=== PATIENT | female | born 1930 | race Hispanic/Latino ===

== ENCOUNTER → 2019-01-20 | Outpatient (CLI) | payer OTHER, MEDICARE ==
[~2019-01-20] MED LIST: ALEN70TA10 PO; APIX2.5T PO; CETI10TA86 PO; CHOL500050 PO; DONE10TA43 PO; HYDR25TA PO; LEVO100T12 PO; METO25TA6 PO; MULT-492 PO; OXYB5TAB10 PO; PRAV40TA3 PO; VALS160T29 PO
== END | disposition home or self-care (01) ==
LOC: SHCH 13:16
PROVIDERS: ATTEND Internal Medicine Cardiovascular Disease
DX: I08.0 Rheumatic disorders of both mitral and aortic valves (principal); I11.9 Hypertensive heart disease without heart failure; I48.2 Chronic atrial fibrillation; Z95.0 Presence of cardiac pacemaker
CPT/HCPCS: 93306

== ENCOUNTER → 2019-06-06 | Outpatient (CLI) | payer OTHER, MEDICARE ==
[~2019-06-06] MED LIST changes: +AMLO5TAB9 PO; +AMOX-429 PO; +DIGO125T71 PO; +HYDR12.54 PO; +LEVO100 PO; +LOSA50TA64 PO; +METO-391 PO; +METO-409 PO; +MULT-507 PO; -OXYB5TAB10 PO; +OXYB5TAB15 PO; +RIVA15TA PO
== END | disposition home or self-care (01) ==
LOC: RAH 07:39
PROVIDERS: ATTEND Internal Medicine
DX: R93.2 Abnormal findings on diagnostic imaging of liver and biliary tract (principal); R10.9 Unspecified abdominal pain
CPT/HCPCS: 76700

== ENCOUNTER → 2019-08-04 | Outpatient (CLI) | payer OTHER, MEDICARE ==
[~2019-08-04] MED LIST changes: +ACET650S14 RC; -ALEN70TA10 PO; +ALEN70TA69 PO; +AMLO-257 PEG; -AMLO5TAB9 PO; -AMOX-429 PO; -APIX2.5T PO; +BISA10SU11 RC; +CATAPRESS TD; -CETI10TA86 PO; -CHOL500050 PO; +DIGO125T71 PEG; -DIGO125T71 PO; -HYDR25TA PO; +IBUP-2784 PEG; +INSU100V12 SQ; +IOHEXOL-350 50ML VIAL IV ONE; +LACT10SO9 PEG; +LEVO100 PEG; -LEVO100 PO; -LEVO100T12 PO; -METO25TA6 PO; +METR500T PO; -MULT-492 PO; +NYST5ORA7 PO; +ONDA-104 PEG; +PANT40SU PEG; +QUET25TA PEG; +RIVA15TA PEG; -RIVA15TA PO; -VALS160T29 PO
== END | disposition home or self-care (01) ==
LOC: RAH 10:18
PROVIDERS: ATTEND Internal Medicine Infectious Disease
DX: K63.2 Fistula of intestine (principal); F41.9 Anxiety disorder, unspecified; Z79.899 Other long term (current) drug therapy
CPT/HCPCS: 49424; 76080; Q9967

== ENCOUNTER → 2019-08-16 | Outpatient (CLI) | payer OTHER, MEDICARE ==
[~2019-08-16] MED LIST changes: -ACET650S14 RC; +ALEN70TA10 PO; -ALEN70TA69 PO; -AMLO-257 PEG; +AMLO5TAB9 PO; -BISA10SU11 RC; -CATAPRESS TD; -DIGO125T71 PEG; +DIGO125T71 PO; -IBUP-2784 PEG; -INSU100V12 SQ; -IOHEXOL-350 50ML VIAL IV ONE; -LACT10SO9 PEG; -LEVO100 PEG; +LEVO100 PO; -NYST5ORA7 PO; -ONDA-104 PEG; -PANT40SU PEG; -QUET25TA PEG; -RIVA15TA PEG; +RIVA15TA PO
== END | disposition home or self-care (01) ==
LOC: RAH 08:58
PROVIDERS: ATTEND Internal Medicine Infectious Disease
DX: K21.9 Gastro-esophageal reflux disease without esophagitis (principal); L98.8 Other specified disorders of the skin and subcutaneous tissue
CPT/HCPCS: 74240

== ENCOUNTER 2019-09-13 14:49 | Inpatient (IN) | payer OTHER, MEDICARE ==
[~2019-09-13] VITALS: Ht 152.4 cm; Wt 52.0 kg
[~2019-09-13 14:49] MED LIST changes: -ALEN70TA10 PO; +ALEN70TA69 PO; +AMLO-257 PEG; -AMLO5TAB9 PO; +DIGO125T71 PEG; -DIGO125T71 PO; +LEVO100 PEG; -LEVO100 PO; +RIVA15TA PEG; -RIVA15TA PO
[2019-09-13 15:52] LABS: BASOPHILS % (AUTO) 0.2 % (0.0-5.0); EOSINOPHILS % (AUTO) 2.6 % (0.0-8.0); HEMATOCRIT 33.7 % (36-48); LYMPHOCYTES % (AUTO) 27.9 % (21.0-51.0); MEAN CORPUSCULAR HEMOGLOBIN 26.4 pg (27.0-33.0); MEAN CORPUSCULAR HGB CONC 31.5 g/dL (32.0-36.0); MEAN CORPUSCULAR VOLUME 83.8 fL (79-99); MONOCYTES % (AUTO) 7.9 % (3.0-13.0); NEUTROPHILS % (AUTO) 60.9 % (40.0-77.0); PLATELET COUNT (AUTO) 515 K/uL (130-400); RED BLOOD CELL COUNT(AUTO) 4.02 MIL/uL (4.00-5.50); RED CELL DISTRIBUTION WIDTH 16.9 % (11.0-15.5); WHITE BLOOD COUNT (AUTO) 8.8 K/uL (4.8-10.8)
[2019-09-13 16:12] LABS: INR 1.19 (0.85-1.15); PARTIAL THROMBOPLASTIN TIME 33.7 SEC (26.3-35.5); PROTHROMBIN TIME 12.8 SEC (9.6-11.6)
[2019-09-13 16:37] LABS: POTASSIUM 3.9 mmol/L (3.5-5.1)
[2019-09-13 16:42] LABS: ALBUMIN 2.9 g/dL (3.5-5.0); BILIRUBIN,TOTAL 0.2 mg/dL (0.2-1.0); CRP QUANTITATIVE 3.9 mg/L (0.00-9.0)
[2019-09-13] MEDS ORDERED: DIATR MEGLU/DIATRIZOATE SODIUM 30 ML BOTTLE ONE (16:45)
[2019-09-13] MEDS ORDERED: IOHEXOL-350 75 ML VIAL IV ONE (16:45)
[2019-09-13 16:57] LABS: ERYTHROCYTE SEDIMENTATION RATE 39 MM/HR (0-30)
[2019-09-13] MEDS: SODIUM CHLORIDE 0.9% 1000ML 1,000 ML IV SCH (21:15)
[2019-09-13] MEDS ORDERED: ONDANSETRON HCL 4 MG/2 ML VIAL IVP PRN ×2 (21:15)
[2019-09-13] MEDS ORDERED: ACETAMINOPHEN 650 MG SUPPOSITORY RC PRN (21:15)
[2019-09-13] MEDS ORDERED: GLUCAGON 1MG KIT 1 MG ML IM PRN (21:15)
[2019-09-13 23:50] VITALS: BP 166/61
[2019-09-13] MEDS: INSULIN R NPO SS1/2 SQ SCH (23:58)
[2019-09-14] MEDS ORDERED: QUET25TA PEG (00:59)
[2019-09-14] MEDS ORDERED: ONDA-104 PEG (00:59)
[2019-09-14] MEDS ORDERED: PANT40SU PEG (00:59)
[2019-09-14] MEDS ORDERED: ACET650S14 RC (00:59)
[2019-09-14] MEDS ORDERED: INSU100V12 SQ (00:59)
[2019-09-14] MEDS ORDERED: NYST5ORA7 PO (00:59)
[2019-09-14] MEDS ORDERED: CATAPRESS TD (00:59)
[2019-09-14] MEDS ORDERED: BISA10SU11 RC (00:59)
[2019-09-14] MEDS ORDERED: LACT10SO9 PEG (00:59)
[2019-09-14] MEDS ORDERED: IBUP-2784 PEG (00:59)
[2019-09-14] MEDS ORDERED: IBUPROFEN 100 MG/5 ML SUSP UDCUP PEG PRN (01:15)
[2019-09-14] MEDS ORDERED: ACETAMINOPHEN 650 MG SUPPOSITORY RC PRN (01:15)
[2019-09-14] MEDS ORDERED: ONDANSETRON 4 MG TABLET PEG PRN (01:15)
[2019-09-14] MEDS ORDERED: BISACODYL 10 MG SUPP.RECT RC PRN (01:15)
[2019-09-14] MEDS ORDERED: LACTULOSE 20 GM/30 ML UDCUP PEG PRN (01:15)
[2019-09-14 04:04] VITALS: BP 160/60
[2019-09-14 04:30] LABS: MEAN CORPUSCULAR HEMOGLOBIN 25.8 pg (27.0-33.0); MEAN CORPUSCULAR HGB CONC 30.6 g/dL (32.0-36.0); MEAN CORPUSCULAR VOLUME 84.5 fL (79-99); PLATELET COUNT (AUTO) 448 K/uL (130-400); RED BLOOD CELL COUNT(AUTO) 4.14 MIL/uL (4.00-5.50); RED CELL DISTRIBUTION WIDTH 16.8 % (11.0-15.5); WHITE BLOOD COUNT (AUTO) 9.7 K/uL (4.8-10.8)
[2019-09-14 04:55] LABS: CREATININE 0.8 mg/dL (0.5-1.5); MAGNESIUM 1.6 mg/dL (1.80-2.40); POTASSIUM 3.7 mmol/L (3.5-5.1)
[2019-09-14] MEDS: INSULIN R NPO SS1/2 SQ SCH ×4 (06:00→23:59)
[2019-09-14 07:19] LABS: APPEARANCE,URINE CLEAR (CLEAR); BILIRUBIN,URINE NEGATIVE (NEGATIVE); COLOR,URINE YELLOW (YELLOW); GLUCOSE, URINE (UA) NEGATIVE (NEGATIVE); KETONES,URINE NEGATIVE (NEGATIVE); LEUKOCYTE ESTERASE ,URINE SMALL (NEGATIVE); NITRATE,URINE NEGATIVE (NEGATIVE); OCCULT BLOOD,URINE NEGATIVE (NEGATIVE); PH,URINE 7.5 (5.0-8.0); PROTEIN,URINE 30 mg/dL (NEGATIVE); UROBILINOGEN,URINE 0.2 mg/dL (0.2-1.0)
[2019-09-14] MEDS: SODIUM CHLORIDE 0.9% 1000ML 1,000 ML IV SCH ×2 (07:23→17:28)
[2019-09-14] MEDS: LEVOTHYROXINE 100 MCG TABLET PO SCH (07:30)
[2019-09-14 07:57] VITALS: BP 125/78
[2019-09-14 07:58] LABS: RBC,URINE 0-1 /HPF (0-1); WBC,URINE 26-50 /HPF (0-1)
[2019-09-14 07:59] LABS: BACTERIA,URINE Moderate /HPF (None Seen); SQUAMOUS EPITHELIAL CELL,UR Rare /HPF (0-2)
[2019-09-14] MEDS: DIGOXIN 125 MCG TABLET PO SCH (08:24)
[2019-09-14] MEDS: AMLODIPINE BESYLATE 5 MG TAB PO SCH (08:25)
[2019-09-14] MEDS ORDERED: NYSTATIN 100000 UNIT/ML 5ML UDCUP PO SCH (09:00)
[2019-09-14] MEDS ORDERED: FAMOTIDINE/PF 20 MG/2 ML VIAL IV SCH (09:00)
[2019-09-14 11:11] VITALS: BP 159/81
[2019-09-14] MEDS: PANTOPRAZOLE SODIUM 40 MG TABLET.DR PO SCH ×2 (13:00→21:00)
[2019-09-14] MEDS ORDERED: VANCOMYCIN PROTOCOL PER PHARMACY IV SCH (15:00)
--- NOTE | 2019-09-14 15:04 | NUR ---
RD NOTIFICATION Pt admitted with abdominal pain, dementia. Observation status. Pt NPO. Pt with agitation, per RN. Pt monitored labs: BG 133, Ca 8.1, Mg 1.60, Alb 2.9. LBM 09/13/19. RD to continue to monitor for updated POC. Please notify as nutritional concerns arise. Thank you. Addendum: 09/14/19 at [address] Amended: Links added.
--- NOTE | 2019-09-14 15:53 | NUR ---
[facility] consult Patient assessed as requested. Recommendations submitted and report given to patient's nurse. Addendum: 09/14/19 at 1555 by CARIDAD MUELLER LVN Amended: Links added.
--- NOTE | 2019-09-14 16:05 | NUR ---
DCP CM called DEBBIE Tovar discussed dc plans. Pt was assist with ADL's, currently short term at [facility] for rehab. Prior to lives at home with son. Pt has a provider(sina Randolph is pt's provider) 20hrs/wk, walker, bedside commode. Denies any other equipments/services. Son able to assist with transportation and needs as necessary. DC plan back to [facility] to continue rehab once pt stable, telephone consent REYNA signed. CM to cont to follow up. Addendum: 09/14/19 at 1607 by ELVIRA CROFT LVN CM Amended: Links added.
[2019-09-14 16:18] VITALS: BP 157/70
[2019-09-14] MEDS ORDERED: VANCOMYCIN 1GM+NS 250ML 250 ML IV ONE (16:30)
[2019-09-14] MEDS ORDERED: HONEY 1 APPL/ML TUBE TP SCH (17:00)
[2019-09-14] MEDS: RIVAROXABAN 10 MG TABLET PEG SCH (17:28)
[2019-09-14 20:16] VITALS: BP 130/74
[2019-09-14] MEDS ORDERED: INSULIN GLARGINE 100 UNITS/ML 10 ML VIAL SQ SCH (21:00)
[2019-09-14] MEDS: ZOSYN 3.375GM+NS 50ML 50 ML IV SCH (21:08)
[2019-09-14 23:11] VITALS: BP 149/85
[2019-09-15 03:33] VITALS: BP 134/61
[2019-09-15] MEDS: VANCOMYCIN 500MG+NS 100ML 100 ML IV SCH ×2 (03:36→17:35)
[2019-09-15] MEDS: ZOSYN 3.375GM+NS 50ML 50 ML IV SCH ×3 (03:36→18:27)
[2019-09-15] MEDS: SODIUM CHLORIDE 0.9% 1000ML 1,000 ML IV SCH ×2 (03:38→20:51)
[2019-09-15 05:36] LABS: BASOPHILS % (AUTO) 0.4 % (0.0-5.0); EOSINOPHILS % (AUTO) 1.5 % (0.0-8.0); HEMATOCRIT 31.8 % (36-48); LYMPHOCYTES % (AUTO) 15.3 % (21.0-51.0); MEAN CORPUSCULAR HEMOGLOBIN 25.2 pg (27.0-33.0); MEAN CORPUSCULAR HGB CONC 30.2 g/dL (32.0-36.0); MEAN CORPUSCULAR VOLUME 83.5 fL (79-99); MONOCYTES % (AUTO) 8.2 % (3.0-13.0); NEUTROPHILS % (AUTO) 74.2 % (40.0-77.0); PLATELET COUNT (AUTO) 425 K/uL (130-400); RED BLOOD CELL COUNT(AUTO) 3.81 MIL/uL (4.00-5.50); RED CELL DISTRIBUTION WIDTH 16.9 % (11.0-15.5); WHITE BLOOD COUNT (AUTO) 8.2 K/uL (4.8-10.8)
[2019-09-15 05:53] LABS: ALBUMIN 2.6 g/dL (3.5-5.0); BILIRUBIN,TOTAL 0.5 mg/dL (0.2-1.0); MAGNESIUM 1.6 mg/dL (1.80-2.40); POTASSIUM 3.4 mmol/L (3.5-5.1)
[2019-09-15] MEDS: INSULIN R NPO SS1/2 SQ SCH ×3 (06:00→18:00)
[2019-09-15 08:00] VITALS: BP 124/61
[2019-09-15] MEDS: PANTOPRAZOLE SODIUM 40 MG TABLET.DR PO SCH ×2 (08:59→20:50)
[2019-09-15] MEDS: LEVOTHYROXINE 100 MCG TABLET PO SCH (08:59)
[2019-09-15] MEDS: AMLODIPINE BESYLATE 5 MG TAB PO SCH (08:59)
[2019-09-15] MEDS: DIGOXIN 125 MCG TABLET PO SCH (08:59)
[2019-09-15 12:00] VITALS: BP 161/85
--- NOTE | 2019-09-15 14:15 | NUR ---
CM Note: Dusty pending reacceptance CM spoke to Eunice Zee, received H&P, cliniclals, covid post acute assessment. Per Eunice pt does not need new PASRR at this time. Pt pending reacceptance at this time. EMS arranged and faxed for today, primary nurse to call [facility] once pt ready to DC. Primary nurse aware. CM to cont to follow up.
--- NOTE | 2019-09-15 15:24 | NUR ---
1501 as per Ann Castaneda patient is confused. I faxed IM letter to [id number] with note;patient is confused. I placed IM Letter in chart under consent tab.
[2019-09-15 16:00] VITALS: BP 135/77
[2019-09-15] MEDS: RIVAROXABAN 10 MG TABLET PEG SCH (17:35)
[2019-09-15] MEDS: QUETIAPINE FUMARATE 25 MG TAB PEG PRN (20:50)
[2019-09-15] MEDS: LACTATED RINGERS 1000ML 1,000 ML IV SCH (20:54)
[2019-09-15 21:42] VITALS: BP 145/72
[2019-09-16] MEDS: ZOSYN 3.375GM+NS 50ML 50 ML IV SCH ×3 (02:38→17:35)
[2019-09-16] MEDS: LACTATED RINGERS 1000ML 1,000 ML IV SCH ×2 (02:39→17:30)
[2019-09-16 04:37] VITALS: BP 144/71
[2019-09-16 04:42] LABS: CREATININE 1.1 mg/dL (0.5-1.5); MAGNESIUM 1.5 mg/dL (1.80-2.40)
[2019-09-16] MEDS: INSULIN R NPO SS1/2 SQ SCH ×4 (06:00→17:35)
[2019-09-16] MEDS: LEVOTHYROXINE 100 MCG TABLET PO SCH (06:08)
[2019-09-16] MEDS: VANCOMYCIN 500MG+NS 100ML 100 ML IV SCH (06:08)
[2019-09-16 08:00] VITALS: BP 115/64
[2019-09-16] MEDS: PANTOPRAZOLE SODIUM 40 MG TABLET.DR PO SCH ×2 (09:00→20:48)
[2019-09-16] MEDS: SODIUM CHLORIDE 0.9% 1000ML 1,000 ML IV SCH ×3 (09:15→20:16)
--- NOTE | 2019-09-16 11:04 | NUR ---
DR MATHIAS MADE ROUNDS ON PATIENT .PER DR MATHIAS REGARDING PENDING POSSIBLE FISTULOGRAM WILL SPEAK WITH DR INTERIANO FIRST AND DECIDE IF TO PROCEED WITH TEST BUT FOR NOW ALLOWING ICE CHIPS AND SIPS OF WATER .
[2019-09-16] MEDS: POTASSIUM CHLORIDE 20MEQ/100ML 100 ML IV PRN ×2 (11:30→14:24)
[2019-09-16] MEDS: LIDOCAINE HCL-MPF 1% 2ML VIAL IV PRN ×2 (11:30→14:24)
[2019-09-16] MEDS: MAGNESIUM 2GM PREMIX 50ML 50 ML IV PRN (11:32)
[2019-09-16 12:00] VITALS: BP 138/68
[2019-09-16 16:00] VITALS: BP 147/69
[2019-09-16] MEDS: AMLODIPINE BESYLATE 5 MG TAB PO SCH (17:30)
[2019-09-16] MEDS: RIVAROXABAN 10 MG TABLET PEG SCH (17:30)
[2019-09-16] MEDS: DIGOXIN 125 MCG TABLET PO SCH (17:30)
[2019-09-16 19:50] VITALS: BP 123/80
[2019-09-16] MEDS: QUETIAPINE FUMARATE 25 MG TAB PEG PRN (22:53)
[2019-09-16 23:39] VITALS: BP 133/58
[2019-09-17] MEDS: ZOSYN 3.375GM+NS 50ML 50 ML IV SCH ×3 (02:04→17:05)
[2019-09-17 04:01] VITALS: BP 131/63
[2019-09-17] MEDS: SODIUM CHLORIDE 0.9% 1000ML 1,000 ML IV SCH ×2 (05:15→15:28)
[2019-09-17] MEDS: INSULIN R NPO SS1/2 SQ SCH ×4 (05:37→17:03)
[2019-09-17 05:38] LABS: MAGNESIUM 1.8 mg/dL (1.80-2.40); POTASSIUM 3.1 mmol/L (3.5-5.1)
[2019-09-17] MEDS: LEVOTHYROXINE 100 MCG TABLET PO SCH (07:45)
[2019-09-17] MEDS: LACTATED RINGERS 1000ML 1,000 ML IV SCH ×2 (07:52→19:35)
[2019-09-17 08:00] VITALS: BP 140/63
[2019-09-17] MEDS: PANTOPRAZOLE SODIUM 40 MG TABLET.DR PO SCH ×2 (09:47→21:00)
[2019-09-17] MEDS: DIGOXIN 125 MCG TABLET PO SCH (09:48)
[2019-09-17] MEDS: AMLODIPINE BESYLATE 5 MG TAB PO SCH (09:48)
[2019-09-17 12:00] VITALS: BP 132/58
[2019-09-17 16:00] VITALS: BP 143/69
[2019-09-17] MEDS: RIVAROXABAN 10 MG TABLET PEG SCH (17:05)
[2019-09-17 20:04] VITALS: BP 157/71
[2019-09-17] MEDS: QUETIAPINE FUMARATE 25 MG TAB PEG PRN (21:32)
[2019-09-18] VITALS (7 sets, daily range): BP systolic 136–176; BP diastolic 57–81
[2019-09-18] MEDS: DEXTROSE 50%-WATER 50 ML DISP.SYRIN IV PRN (01:31)
[2019-09-18] MEDS: ZOSYN 3.375GM+NS 50ML 50 ML IV SCH ×3 (03:24→18:50)
[2019-09-18] MEDS: INSULIN R NPO SS1/2 SQ SCH ×4 (06:00→18:00)
[2019-09-18 06:13] LABS: INR 1.26 (0.85-1.15); PROTHROMBIN TIME 13.5 SEC (9.6-11.6)
[2019-09-18] MEDS: LEVOTHYROXINE 100 MCG TABLET PO SCH (06:35)
[2019-09-18] MEDS: LACTATED RINGERS 1000ML 1,000 ML IV SCH ×2 (06:35→22:15)
[2019-09-18] MEDS: PANTOPRAZOLE SODIUM 40 MG TABLET.DR PO SCH ×2 (09:00→20:47)
[2019-09-18] MEDS: AMLODIPINE BESYLATE 5 MG TAB PO SCH (09:14)
[2019-09-18] MEDS: DIGOXIN 125 MCG TABLET PO SCH (09:14)
[2019-09-18] MEDS ORDERED: IOHEXOL-350 50ML VIAL IV ONE (10:48)
--- NOTE | 2019-09-18 12:22 | NUR ---
CM NOTE/[facility] FAXED PER ALVINO, BIPIN ORDER TO RETURN TO SNF. FAXED ORDER TO [facility] FAX, CONFIRMED RECEIVED VIA FAX.
--- NOTE | 2019-09-18 14:33 | NUR ---
RD FOLLOW UP Pt NPO pending Fistulogram per RN. Depending results, Pt diet to be advanced vs Altered means nutrition/TPN. Recommend to advance diet as tolerated to 75gm, Heart Healthy as medically feasible. Pt NPO X 5 days. Malnutrition risk. Pt admitted with abdominal pain. Pt has fistula. RD to continue to monitor. Please notify as additional nutrition concerns arise. Thank you. Addendum: 09/18/19 at [address] Amended: Links added.
[2019-09-18] MEDS: RIVAROXABAN 10 MG TABLET PEG SCH (16:19)
[2019-09-18] MEDS: INSULIN HUMULIN R 100 UNIT/ML 3ML SQ SCH (21:00)
[2019-09-19] MEDS: LACTATED RINGERS 1000ML 1,000 ML IV SCH ×3 (02:15→20:40)
[2019-09-19] MEDS: ZOSYN 3.375GM+NS 50ML 50 ML IV SCH ×4 (02:16→18:00)
[2019-09-19 03:57] VITALS: BP 140/66
[2019-09-19 05:30] LABS: BASOPHILS % (AUTO) 0.4 % (0.0-5.0); EOSINOPHILS % (AUTO) 3.8 % (0.0-8.0); HEMATOCRIT 34.7 % (36-48); LYMPHOCYTES % (AUTO) 23.4 % (21.0-51.0); MEAN CORPUSCULAR HEMOGLOBIN 25.4 pg (27.0-33.0); MEAN CORPUSCULAR HGB CONC 31.4 g/dL (32.0-36.0); MEAN CORPUSCULAR VOLUME 80.9 fL (79-99); PLATELET COUNT (AUTO) 368 K/uL (130-400); RED BLOOD CELL COUNT(AUTO) 4.29 MIL/uL (4.00-5.50); RED CELL DISTRIBUTION WIDTH 16.5 % (11.0-15.5); WHITE BLOOD COUNT (AUTO) 5.6 K/uL (4.8-10.8)
[2019-09-19] MEDS: INSULIN HUMULIN R 100 UNIT/ML 3ML SQ SCH ×4 (05:30→20:40)
[2019-09-19 05:53] LABS: CREATININE 0.8 mg/dL (0.5-1.5); MAGNESIUM 1.3 mg/dL (1.80-2.40)
[2019-09-19 05:56] LABS: POTASSIUM 2.9 mmol/L (3.5-5.1)
[2019-09-19] MEDS: MAGNESIUM 2GM PREMIX 50ML 50 ML IV PRN (06:13)
[2019-09-19] MEDS: LEVOTHYROXINE 100 MCG TABLET PO SCH (06:30)
--- NOTE | 2019-09-19 07:30 | NUR ---
PATIENT BECOMING INCREASINGLY RESTLESS, STATES SHE DOES NOT WANT TO BE AN "INVALID," NEEDS TO STAY ACTIVE AND WANTS TO GO HOME. ACCIDENTALLY DISLODGED IV SHE GOT OUT OF BED TO SIT ON CHAIR UNASSISTED. IV SITE RED/SWOLLEN/INFILTRATED, IV SITE REMOVED. ENCOURAGED TO STAY IN BED OR SIT ON CHAIR HER HEART RATE INCREASES TO 130'S-150'S, BUT BECOMES EASILY UPSET SHE STATES SHE DOES NOT WANT TO BE IN BED ANYMORE. REPORT GIVEN TO DAY SHIFT NURSE.
[2019-09-19 07:57] VITALS: BP 138/89
[2019-09-19] MEDS: PANTOPRAZOLE SODIUM 40 MG TABLET.DR PO SCH ×2 (09:22→20:40)
[2019-09-19] MEDS: AMLODIPINE BESYLATE 5 MG TAB PO SCH (09:22)
[2019-09-19] MEDS: DIGOXIN 125 MCG TABLET PO SCH (09:22)
--- NOTE | 2019-09-19 10:01 | NUR ---
Patient refusing IV placement to continue with IV medications and intravenous fluid replacement as ordered. Explained necessity of medications to improve wellness and treat infections. Patient states she does not want IV placed or to be connected to IV fluids/medications and that she can take oral antibiotics. Explained refusal of treatment form and that it is patient's right to refuse treatment and requested patient's signature, however patient states she will wait to talk to physicians before signing refusal of treatment form.
[2019-09-19] MEDS ORDERED: POTASSIUM CHLORIDE 10% ELIXIR 20 MEQ/15 ML UDCUP ONE (10:09)
[2019-09-19] MEDS ORDERED: LIDOCAINE HCL-MPF 1% 2ML VIAL IV PRN (10:15)
[2019-09-19] MEDS ORDERED: POTASSIUM CHLORIDE 20MEQ/100ML 100 ML IV PRN (10:15)
[2019-09-19 11:58] VITALS: BP 124/66
[2019-09-19] MEDS: POTASSIUM CHLORIDE 10% ELIXIR 20 MEQ/15 ML UDCUP PO PRN ×3 (13:51→17:23)
--- NOTE | 2019-09-19 14:50 | NUR ---
RD FOLLOW UP Diet advanced to Clear Liquid. Pt with refusal of POC, severe dementia, as per EMR. Recommend Ensure Clear TID, with meals Recommend Advance diet as tolerated to Heart healthy, 75gm CCD, as medically feasible RD to continue to monitor. Please notify as nutritional concerns arise. Addendum: 09/19/19 at [address] Amended: Links added.
[2019-09-19] MEDS: RIVAROXABAN 10 MG TABLET PEG SCH (16:13)
[2019-09-19 16:45] VITALS: BP 133/54
[2019-09-19 20:00] VITALS: BP 159/58
[2019-09-20] VITALS (7 sets, daily range): BP systolic 137–161; BP diastolic 52–76
[2019-09-20] MEDS: ZOSYN 3.375GM+NS 50ML 50 ML IV SCH ×3 (00:25→17:11)
[2019-09-20 05:08] LABS: HEMATOCRIT 34.2 % (36-48); MEAN CORPUSCULAR HEMOGLOBIN 25.4 pg (27.0-33.0); MEAN CORPUSCULAR HGB CONC 31.6 g/dL (32.0-36.0); MEAN CORPUSCULAR VOLUME 80.5 fL (79-99); RED BLOOD CELL COUNT(AUTO) 4.25 MIL/uL (4.00-5.50); RED CELL DISTRIBUTION WIDTH 16.8 % (11.0-15.5); WHITE BLOOD COUNT (AUTO) 4.7 K/uL (4.8-10.8)
[2019-09-20 05:25] LABS: CREATININE 0.9 mg/dL (0.5-1.5); MAGNESIUM 1.9 mg/dL (1.80-2.40)
[2019-09-20 05:55] LABS: POTASSIUM 2.9 mmol/L (3.5-5.1)
[2019-09-20] MEDS: LIDOCAINE HCL-MPF 1% 2ML VIAL IV PRN ×2 (06:07→13:44)
[2019-09-20] MEDS: POTASSIUM CHLORIDE 20 MEQ ERTAB PO PRN ×4 (06:07→16:23)
[2019-09-20] MEDS: POTASSIUM CHLORIDE 20MEQ/100ML 100 ML IV PRN ×2 (06:07→13:44)
[2019-09-20] MEDS: INSULIN HUMULIN R 100 UNIT/ML 3ML SQ SCH ×4 (06:32→20:29)
[2019-09-20] MEDS: LEVOTHYROXINE 100 MCG TABLET PO SCH (06:36)
[2019-09-20] MEDS: PANTOPRAZOLE SODIUM 40 MG TABLET.DR PO SCH ×2 (08:31→20:10)
[2019-09-20] MEDS: DIGOXIN 125 MCG TABLET PO SCH (08:32)
[2019-09-20] MEDS: AMLODIPINE BESYLATE 5 MG TAB PO SCH (08:32)
[2019-09-20] MEDS: LACTATED RINGERS 1000ML 1,000 ML IV SCH ×2 (13:44→20:10)
[2019-09-20] MEDS: CLONIDINE 0.1 MG/ 24 HR PATCH TD SCH (16:23)
[2019-09-20] MEDS: RIVAROXABAN 10 MG TABLET PEG SCH (16:23)
--- NOTE | 2019-09-20 17:00 | NUR ---
informed reina,hat finishing materials preparer regarding pending clearance from surgery and infection dis ,and pending call back . per hat finishing materials preparer leave discharge order active and transfer once cleared by specialists .
--- NOTE | 2019-09-20 17:29 | NUR ---
CM NOTE/[facility] APPROVED PER ALVINO, PATIENT APPROVED TO RETURN WHEN MEDICALLY CLEARED. TREMAINE VAUGHAN, PRIMARY NURSE, MADE AWARE.
[2019-09-21] MEDS: ZOSYN 3.375GM+NS 50ML 50 ML IV SCH ×3 (01:29→17:59)
[2019-09-21 03:38] VITALS: BP 138/65
[2019-09-21 04:59] LABS: INR 1.21 (0.85-1.15); PARTIAL THROMBOPLASTIN TIME 31.3 SEC (26.3-35.5)
[2019-09-21] MEDS: LEVOTHYROXINE 100 MCG TABLET PO SCH (05:31)
[2019-09-21] MEDS: INSULIN HUMULIN R 100 UNIT/ML 3ML SQ SCH ×4 (05:39→20:08)
[2019-09-21 09:01] VITALS: BP 172/59
[2019-09-21] MEDS: AMLODIPINE BESYLATE 5 MG TAB PO SCH (09:48)
[2019-09-21] MEDS: HONEY 1 APPL/ML TUBE TP SCH (09:48)
[2019-09-21] MEDS: DIGOXIN 125 MCG TABLET PO SCH (09:48)
[2019-09-21] MEDS: PANTOPRAZOLE SODIUM 40 MG TABLET.DR PO SCH ×2 (09:48→20:05)
--- NOTE | 2019-09-21 11:03 | NUR ---
RD UPDATE RD Notification for TPN received. Recommend initiate at low to moderate infusion rate of 50mls/hr. 60gm protein, 180gm Dxt, 852kcal. Recommendations placed in Pt chart. RD to monitor for rate advancement upon tolerance. please notify as additional concerns arise. Thank you.
--- NOTE | 2019-09-21 12:00 | NUR ---
[facility] TONYA CAME BY TO SEE PATIENT AND INFORMED SHE WILL HAVE TO SEND FOR INSURANCE AUTHORIZATION AGAIN DUE TO CHANGE FOR PICC LINE AND TPN NEW ORDERS . SHE ALSO COLLECTED FOR COVID TEST THRU HER FACILITY PROTOCOL WITH OWN SUPPLY .
[2019-09-21 12:32] VITALS: BP 147/62
--- NOTE | 2019-09-21 13:56 | NUR ---
DC PLAN VISITED WITH PATIENT SEVERAL TIMES. PATIENT SEEMS A LITTLE CONFUSED. SPOKE TO DAUGHTER. PATIENT GETTING PICC LINE. SPOKE TO SONYA SAID WILL NEED FOR AT LEAST 3 WEEKS. INFO SENT [facility]. STILL PENDING PICC AND TPN ORDER. Addendum: 09/21/19 at 1401 by RALF FLORES RN CM Amended: Links added.
[2019-09-21] MEDS: CLONIDINE 0.1 MG/ 24 HR PATCH TD SCH (14:00)
--- NOTE | 2019-09-21 14:00 | NUR ---
SONYA CROFT MADE ROUNDS, PATIENT TO HAVE TPN STARTED AND CONT AT [facility] WITH TPN ,MAY HAVE CLEAR LIQUID DIET WELL.. PER SONYA ONCE PATIENT GOES TO [facility] WILL CONT WITH TPN FOR 2 WEEKS AND WILL NEED TO SCHEDULE A REPEAT FISTULOGRAM IN 2 WEEKS POST DISCHARGE FROM HOSPITAL .
--- NOTE | 2019-09-21 16:41 | NUR ---
PATIENT PENDING CYNDI, PER HOUSE SUP TO GIVE AFTER PICC LINE PLACEMENT NOT BEFORE .. PICC LINE NURSE WILL COME BY TO PLACE PICC PENDING THIS AFTERNOON
[2019-09-21] MEDS: RIVAROXABAN 10 MG TABLET PEG SCH (16:54)
[2019-09-21] MEDS: LACTATED RINGERS 1000ML 1,000 ML IV SCH ×2 (16:55→20:13)
--- NOTE | 2019-09-21 17:00 | NUR ---
PER PICC LINE NURSE NO NEED TO HOLD XARELTO OK TO GIVE ALREADY
[2019-09-21 17:17] VITALS: BP 154/62
[2019-09-21] MEDS ORDERED: M.V.I. IV [ADULT] 10 ML in CLINIMIX E 5%-15% 2,000 ML IV SCH (17:45)
--- NOTE | 2019-09-21 18:35 | NUR ---
STATUS POST PICC LINE PLACEMENT ,PER PICC LINE NURSE PATIENT HAS SOME BLOOD COLLECTION UNDER DRESSING AND TO MONITOR FOR PATIENT NOT TO GET UP ON HER OWN AND TO RELAX HER ARM . PENDING PICC LINE PLACEMENT VERIFICATION PER CXR AND MD ORDER TO USE . WILL CONTINUE TO MONITOR
[2019-09-21 20:23] VITALS: BP 165/66
[2019-09-21 23:57] VITALS: BP 162/61
[2019-09-22] MEDS: ZOSYN 3.375GM+NS 50ML 50 ML IV SCH ×3 (01:09→16:49)
[2019-09-22 04:05] VITALS: BP 160/64
--- NOTE | 2019-09-22 05:36 | NUR ---
abdominal wounds cleaned, pictures taken and placed on chart
[2019-09-22] MEDS: LEVOTHYROXINE 100 MCG TABLET PO SCH (05:41)
[2019-09-22] MEDS: INSULIN HUMULIN R 100 UNIT/ML 3ML SQ SCH ×4 (05:51→21:00)
[2019-09-22 08:00] VITALS: BP 162/54
[2019-09-22] MEDS: AMLODIPINE BESYLATE 5 MG TAB PO SCH (09:07)
[2019-09-22] MEDS: PANTOPRAZOLE SODIUM 40 MG TABLET.DR PO SCH ×2 (09:07→22:18)
[2019-09-22] MEDS: DIGOXIN 125 MCG TABLET PO SCH (09:08)
[2019-09-22] MEDS: HONEY 1 APPL/ML TUBE TP SCH (09:09)
[2019-09-22 11:50] VITALS: BP 142/70
[2019-09-22] MEDS: CLONIDINE 0.1 MG/ 24 HR PATCH TD SCH (14:00)
--- NOTE | 2019-09-22 14:45 | NUR ---
RD UPDATE TPN initiated 09/21/19 20:06. Noted elevated BG levels, 205 this AM at time of screen. Recommend continue TPN at current rate at this time. RD to follow up for advancement on Wednesday. Please notify as nutrition concerns arise.
--- NOTE | 2019-09-22 15:04 | NUR ---
DC PLAN SPOKE TO SON AND DAUGHTER. THEY HAD QUESTIONS REGARDING [facility] SINCE INSURANCE CONTACTED THEM REGARDING PLACEMENT. ASKED IF THEY WANTED TO CHANGE FROM [facility] TO [facility]. ONCE I EXPLAINED THAT THEY COULD NOT HAVE BOTH THEY HAD TO CHOOSE AND THAT [facility] NORMALLY DOES NOT DO [employer] PLACEMENT. MOM ALREADY [employer] AT [facility] THEY MIGHT WANT TO MAKE SURE [facility] IS ACCEPTING [facility]. SAID OKAY STICK WITH [facility]. INFO UPDATES SENT TO [facility]. PENDING COST BENEFIT OF LIPIDS. Addendum: 09/22/19 at 1514 by RALF FLORES RN CM Amended: Links added.
[2019-09-22 16:00] VITALS: BP 155/75
--- NOTE | 2019-09-22 16:22 | NUR ---
RD UPDATE Only .15/10 Clinimix E availability. Recommend rate of 60mls/hr (61gm protein, 490 kcal) Pt with Clear Liquid diet order in place. Recommend Ensure Clear BID. Please notify RD as additional nutrition concerns arise.
[2019-09-22] MEDS ORDERED: M.V.I. IV [ADULT] 10 ML in CLINIMIX E 5%-15% 2,000 ML IV SCH (16:45)
[2019-09-22] MEDS: RIVAROXABAN 10 MG TABLET PEG SCH (16:46)
[2019-09-22] MEDS ORDERED: CLINIMIX E 4.25%-5% SOLUTION 2,000 ML IV SCH (18:00)
[2019-09-22] MEDS: LACTATED RINGERS 1000ML 1,000 ML IV SCH (19:35)
[2019-09-22 19:59] VITALS: BP 154/74
[2019-09-22 23:32] VITALS: BP 154/74
[2019-09-23] MEDS: ZOSYN 3.375GM+NS 50ML 50 ML IV SCH ×3 (01:20→17:14)
[2019-09-23 04:45] VITALS: BP 142/62
[2019-09-23] MEDS: LEVOTHYROXINE 100 MCG TABLET PO SCH (06:29)
[2019-09-23] MEDS: INSULIN HUMULIN R 100 UNIT/ML 3ML SQ SCH ×4 (06:30→21:01)
[2019-09-23] MEDS: HONEY 1 APPL/ML TUBE TP SCH (07:54)
[2019-09-23 08:00] VITALS: BP 116/68
[2019-09-23] MEDS: LACTATED RINGERS 1000ML 1,000 ML IV SCH ×2 (08:55→21:03)
[2019-09-23] MEDS: PANTOPRAZOLE SODIUM 40 MG TABLET.DR PO SCH ×2 (09:25→20:56)
[2019-09-23] MEDS: AMLODIPINE BESYLATE 5 MG TAB PO SCH (09:25)
[2019-09-23] MEDS: DIGOXIN 125 MCG TABLET PO SCH (09:25)
[2019-09-23 11:49] VITALS: BP 166/82
[2019-09-23 13:02] LABS: POTASSIUM 3.6 mmol/L (3.5-5.1)
[2019-09-23] MEDS: CLONIDINE 0.1 MG/ 24 HR PATCH TD SCH (14:00)
[2019-09-23 16:00] VITALS: BP 114/60
[2019-09-23] MEDS ORDERED: CLINIMIX E 4.25%-5% SOLUTION 2,000 ML IV SCH (16:00)
[2019-09-23] MEDS: RIVAROXABAN 10 MG TABLET PEG SCH (17:14)
[2019-09-23 19:00] VITALS: BP 112/52
[2019-09-23 23:00] VITALS: BP 148/59
[2019-09-24] MEDS: ZOSYN 3.375GM+NS 50ML 50 ML IV SCH ×2 (00:55→08:42)
[2019-09-24 03:00] VITALS: BP 147/67
[2019-09-24 05:37] LABS: BASOPHILS % (AUTO) 0.2 % (0.0-5.0); EOSINOPHILS % (AUTO) 1.8 % (0.0-8.0); HEMATOCRIT 33.1 % (36-48); LYMPHOCYTES % (AUTO) 26.9 % (21.0-51.0); MEAN CORPUSCULAR HEMOGLOBIN 25.1 pg (27.0-33.0); MEAN CORPUSCULAR HGB CONC 31.4 g/dL (32.0-36.0); MONOCYTES % (AUTO) 17.9 % (3.0-13.0); NEUTROPHILS % (AUTO) 52.8 % (40.0-77.0); PLATELET COUNT (AUTO) 286 K/uL (130-400); RED BLOOD CELL COUNT(AUTO) 4.14 MIL/uL (4.00-5.50); RED CELL DISTRIBUTION WIDTH 16.6 % (11.0-15.5); WHITE BLOOD COUNT (AUTO) 5.5 K/uL (4.8-10.8)
[2019-09-24 05:50] LABS: ALBUMIN 2.5 g/dL (3.5-5.0); BILIRUBIN,DIRECT 0.2 mg/dL (0.0-0.3); BILIRUBIN,TOTAL 0.6 mg/dL (0.2-1.0); MAGNESIUM 1.6 mg/dL (1.80-2.40); PHOSPHORUS 3.8 mg/dL (2.5-4.9); POTASSIUM 3.5 mmol/L (3.5-5.1); TOTAL PROTEIN, SERUM 5.8 g/dL (6.0-8.3)
[2019-09-24] MEDS: LEVOTHYROXINE 100 MCG TABLET PO SCH (06:00)
[2019-09-24] MEDS: MAGNESIUM 2GM PREMIX 50ML 50 ML IV PRN (06:01)
[2019-09-24] MEDS: INSULIN HUMULIN R 100 UNIT/ML 3ML SQ SCH ×4 (06:01→20:50)
[2019-09-24 08:14] VITALS: BP 91/61
[2019-09-24] MEDS: AMLODIPINE BESYLATE 5 MG TAB PO SCH (08:40)
[2019-09-24] MEDS: DIGOXIN 125 MCG TABLET PO SCH (08:40)
[2019-09-24] MEDS: HONEY 1 APPL/ML TUBE TP SCH (08:42)
[2019-09-24] MEDS: PANTOPRAZOLE SODIUM 40 MG TABLET.DR PO SCH ×2 (08:42→20:49)
[2019-09-24] MEDS: POTASSIUM CHLORIDE 10% ELIXIR 20 MEQ/15 ML UDCUP PO PRN (08:43)
[2019-09-24] MEDS: CLONIDINE 0.1 MG/ 24 HR PATCH TD SCH (11:35)
[2019-09-24] MEDS: LACTATED RINGERS 1000ML 1,000 ML IV SCH (11:35)
[2019-09-24 12:01] VITALS: BP 132/63
[2019-09-24 16:45] VITALS: BP 144/60
[2019-09-24] MEDS: RIVAROXABAN 10 MG TABLET PEG SCH (18:04)
[2019-09-24 20:06] VITALS: BP 147/60
[2019-09-24 23:46] VITALS: BP 122/43
[2019-09-25] MEDS: LACTATED RINGERS 1000ML 1,000 ML IV SCH ×2 (00:55→21:40)
[2019-09-25 03:40] VITALS: BP 153/70
[2019-09-25] MEDS: LEVOTHYROXINE 100 MCG TABLET PO SCH (06:03)
[2019-09-25] MEDS: INSULIN HUMULIN R 100 UNIT/ML 3ML SQ SCH ×4 (06:04→21:00)
[2019-09-25 06:22] LABS: HEMATOCRIT 31.8 % (36-48); MEAN CORPUSCULAR HEMOGLOBIN 25.6 pg (27.0-33.0); MEAN CORPUSCULAR HGB CONC 31.8 g/dL (32.0-36.0); MEAN CORPUSCULAR VOLUME 80.5 fL (79-99); RED BLOOD CELL COUNT(AUTO) 3.95 MIL/uL (4.00-5.50); RED CELL DISTRIBUTION WIDTH 16.7 % (11.0-15.5); WHITE BLOOD COUNT (AUTO) 5.2 K/uL (4.8-10.8)
[2019-09-25 06:42] LABS: MAGNESIUM 1.9 mg/dL (1.80-2.40); POTASSIUM 3.9 mmol/L (3.5-5.1)
[2019-09-25] MEDS: MAGNESIUM 2GM PREMIX 50ML 50 ML IV PRN (06:52)
[2019-09-25 07:30] VITALS: BP 157/52
[2019-09-25 11:00] VITALS: BP 163/62
[2019-09-25] MEDS ORDERED: CLINIMIX E 4.25%-5% SOLUTION 2,000 ML IV SCH (11:30)
[2019-09-25] MEDS: AMLODIPINE BESYLATE 5 MG TAB PO SCH (12:22)
[2019-09-25] MEDS: PANTOPRAZOLE SODIUM 40 MG TABLET.DR PO SCH ×2 (12:22→21:39)
[2019-09-25] MEDS: DIGOXIN 125 MCG TABLET PO SCH (12:23)
[2019-09-25] MEDS: CLONIDINE 0.1 MG/ 24 HR PATCH TD SCH (14:00)
--- NOTE | 2019-09-25 14:00 | NUR ---
SENT UPDATES TO [facility] INCLUDING ORDER W DURATION OF TPN/PO ABX ETC Addendum: 09/25/19 at 1843 by LUL GRACE RN CM Amended: Links added.
[2019-09-25] MEDS: HONEY 1 APPL/ML TUBE TP SCH (14:37)
--- NOTE | 2019-09-25 14:57 | NUR ---
CHELLE Follow up Pt with Clinimix 4.25/5 @60mls (61gms protein, 490kcal). Clear Liquid diet order with Ensure Clear BID (PO 100%). Recommend 60mL Promod QD RD to continue to monitor. Please notify as additional nutrition concerns arise. Thank you. Addendum: 09/25/19 at [address] Amended: Links added.
[2019-09-25 16:00] VITALS: BP 154/57
[2019-09-25] MEDS: RIVAROXABAN 10 MG TABLET PEG SCH (17:46)
[2019-09-25 20:00] VITALS: BP 116/53
--- NOTE | 2019-09-25 21:40 | NUR ---
MEDS SHIFT ASSESSMENT DONE, PLEASE REFER TO CHART. DUE MEDS ADMINISTERED, TOLERATED WELL. PLACED PT BACK IN BED. KEPT RESTED AND COMFORTABLE. CALL LIGHT WITHIN REACH. BED ALARM ACTIVATED. Addendum: 09/26/19 at 0404 by SALLIE GUZMAN RN RN Amended: Links added.
[2019-09-26] VITALS (7 sets, daily range): BP systolic 119–177; BP diastolic 53–68
--- NOTE | 2019-09-26 02:00 | NUR ---
ROUNDS PT RESTING WELL, FAIRLY ASLEEP IN BED. NO DISTRESS NOTED. KEPT UNDISTURBED FOR NOW. WILL MONITOR PT. CALL LIGHT WITHIN REACH.
[2019-09-26] MEDS: LACTATED RINGERS 1000ML 1,000 ML IV SCH (03:30)
--- NOTE | 2019-09-26 05:30 | NUR ---
ROUNDS PT CALM AND QUITE. NO DISTRESS NOTED. NO COMPLAINTS VERBALIZED. PCP IN TO WEIGH AND CHANGE PT'S DIAPER. KEPT ON BED ALARM. FOR MORE CARE.
[2019-09-26] MEDS: LEVOTHYROXINE 100 MCG TABLET PO SCH (06:03)
[2019-09-26] MEDS: INSULIN HUMULIN R 100 UNIT/ML 3ML SQ SCH ×4 (06:04→20:49)
[2019-09-26] MEDS: MAGNESIUM 2GM PREMIX 50ML 50 ML IV PRN (06:28)
[2019-09-26] MEDS: PANTOPRAZOLE SODIUM 40 MG TABLET.DR PO SCH ×2 (09:01→20:13)
[2019-09-26] MEDS: DIGOXIN 125 MCG TABLET PO SCH (09:01)
[2019-09-26] MEDS: AMLODIPINE BESYLATE 5 MG TAB PO SCH (09:01)
[2019-09-26] MEDS: HONEY 1 APPL/ML TUBE TP SCH (12:37)
[2019-09-26] MEDS ORDERED: M.V.I. IV [ADULT] 10 ML in CLINIMIX E 5%-15% 2,000 ML IV SCH (14:00)
[2019-09-26] MEDS: LEVOFLOXACIN 500 MG TABLET PO SCH (14:23)
--- NOTE | 2019-09-26 16:26 | NUR ---
CM Note: Dusty pending approval CM spoke to Eunice Zee, received updated clinicals, pt pending approval for TPN at this time. EMS arranged and faxed for today. Pt pending approval. Primary nurse aware. CM to cont to follow up.
[2019-09-26] MEDS: RIVAROXABAN 10 MG TABLET PEG SCH (18:30)
[2019-09-26] MEDS ORDERED: MORPHINE SULFATE 5 MG/ML VIAL ONE (20:10)
[2019-09-26] MEDS ORDERED: MORPHINE SULFATE 20MG/ML ORAL 0.25 ML PO PRN (20:15)
[2019-09-26] MEDS ORDERED: MORPHINE SULFATE 5 MG/ML VIAL IV PRN (20:30)
--- NOTE | 2019-09-26 20:53 | NUR ---
accucheck was 299, gave 24 units of regular insulin.
--- NOTE | 2019-09-27 00:12 | NUR ---
wounds on abdomen and perineum cleansed and pictures taken and placed on chart.
[2019-09-27 03:15] VITALS: BP 152/71
[2019-09-27] MEDS: INSULIN HUMULIN R 100 UNIT/ML 3ML SQ SCH ×4 (05:40→20:14)
[2019-09-27] MEDS: LEVOTHYROXINE 100 MCG TABLET PO SCH (05:50)
[2019-09-27 08:13] VITALS: BP 144/66
[2019-09-27] MEDS: AMLODIPINE BESYLATE 5 MG TAB PO SCH (10:51)
[2019-09-27] MEDS: PANTOPRAZOLE SODIUM 40 MG TABLET.DR PO SCH ×2 (10:51→20:35)
[2019-09-27] MEDS: DIGOXIN 125 MCG TABLET PO SCH (10:52)
[2019-09-27] MEDS: HONEY 1 APPL/ML TUBE TP SCH (10:53)
--- NOTE | 2019-09-27 11:08 | NUR ---
RD UPDATE Clinimix E 5/15% now available. TPN resumed yesterday. RD FOLLOW UP: BG levels controlled. Pt nutrition needs reassessed. Recommend continue Clinimix E 5/15% at 50mls/hr. Recommend to initiate IV Lipids schedule. New Order Form placed in Pt chart this AM.
[2019-09-27 11:47] VITALS: BP 152/64
[2019-09-27] MEDS: LEVOFLOXACIN 500 MG TABLET PO SCH (15:02)
--- NOTE | 2019-09-27 15:43 | NUR ---
LUPE Note: Douglas pending approval CM spoke to Manisha White, received request and submitted for approval. Pt pending approval at this time. Primary nurse aware. CM to cont to follow up.
[2019-09-27] MEDS: RIVAROXABAN 10 MG TABLET PEG SCH (17:24)
[2019-09-27 17:38] VITALS: BP 148/54
--- NOTE | 2019-09-27 20:00 | NUR ---
accucheck 190, 6 units given of regular insulin
[2019-09-27 20:11] VITALS: BP 139/56
[2019-09-27] MEDS ORDERED: M.V.I. IV [ADULT] 10 ML in CLINIMIX E 5%-15% 2,000 ML IV SCH (21:00)
[2019-09-27 23:43] VITALS: BP 145/46
[2019-09-28 04:38] VITALS: BP 135/49
[2019-09-28] MEDS: LEVOTHYROXINE 100 MCG TABLET PO SCH (05:15)
[2019-09-28] MEDS: INSULIN HUMULIN R 100 UNIT/ML 3ML SQ SCH ×4 (05:42→20:29)
[2019-09-28 07:36] VITALS: BP 155/50
--- NOTE | 2019-09-28 08:15 | NUR ---
NOTE PATIENT AAOX2. KNOWS SHE IS IN THE HOSPITAL AND THAT SHE IS PENDING APPROVAL TO GO TO A FACILITY FOR ADMINISTRATIVE UNDERWRITER IVF AND ABX. HAS PICC LINE GENE. DRESSING CHANGED LAST NIGHT. GOOD FLOW ON BOTH PORTS. SHE HAS BEEN WALKING IN THE [place].
[2019-09-28] MEDS: PANTOPRAZOLE SODIUM 40 MG TABLET.DR PO SCH ×2 (09:23→19:52)
[2019-09-28] MEDS: DIGOXIN 125 MCG TABLET PO SCH (09:23)
[2019-09-28] MEDS: AMLODIPINE BESYLATE 5 MG TAB PO SCH (09:23)
[2019-09-28] MEDS: HONEY 1 APPL/ML TUBE TP SCH (09:24)
[2019-09-28 10:41] VITALS: BP 142/50
[2019-09-28] MEDS: LEVOFLOXACIN 500 MG TABLET PO SCH (13:17)
--- NOTE | 2019-09-28 14:47 | NUR ---
CM Note: Sol[facility] pending approval CM spoke to Manisha White, receivgabriel updated clinicals today. Pt pending approval at this time. CM spoke to pt's son give update, aware pt pending approval for [facility]. Primary nurse aware. CM to cont to follow up.
[2019-09-28 15:54] VITALS: BP 152/85
--- NOTE | 2019-09-28 18:30 | NUR ---
NOTE NO APPROVAL FOR [facility] CAME IN. PATIENT GOT TO SPEAK TO HER DAUGHTER AND SON. SHE SEEMS IN GOOD SPIRITS AT THIS TIME.
[2019-09-28] MEDS: RIVAROXABAN 10 MG TABLET PEG SCH (18:54)
[2019-09-28 20:12] VITALS: BP 147/89
[2019-09-28] MEDS: DEXTROSE 50%-WATER 50 ML DISP.SYRIN IV PRN (23:21)
--- NOTE | 2019-09-28 23:21 | NUR ---
BLOOD SUGAR PATIENT C/O OF FEELING HOT, BLOOD SUGAR BY FINGERSTICK 35, TEMP 98.7 F, PULSE 70 ,RESP 18 B/P 144/56, SAT 100 % ON R/A , STAT GLUCOSE BY LAB ORDERED, 1 AMP OF 50 % DEXTROSE IV GIVEN
[2019-09-29 00:24] VITALS: BP 130/53
[2019-09-29 04:49] VITALS: BP 151/52
[2019-09-29 04:49] LABS: BASOPHILS % (AUTO) 0.5 % (0.0-5.0); EOSINOPHILS % (AUTO) 2.3 % (0.0-8.0); LYMPHOCYTES % (AUTO) 44.6 % (21.0-51.0); MEAN CORPUSCULAR HEMOGLOBIN 25.6 pg (27.0-33.0); MEAN CORPUSCULAR HGB CONC 31.9 g/dL (32.0-36.0); MEAN CORPUSCULAR VOLUME 80.4 fL (79-99); MONOCYTES % (AUTO) 29.8 % (3.0-13.0); NEUTROPHILS % (AUTO) 22.5 % (40.0-77.0); PLATELET COUNT (AUTO) 347 K/uL (130-400); RED BLOOD CELL COUNT(AUTO) 3.98 MIL/uL (4.00-5.50); RED CELL DISTRIBUTION WIDTH 16.3 % (11.0-15.5); WHITE BLOOD COUNT (AUTO) 3.9 K/uL (4.8-10.8)
[2019-09-29 05:18] LABS: ALBUMIN 2.5 g/dL (3.5-5.0); BILIRUBIN,TOTAL 0.4 mg/dL (0.2-1.0); CREATININE 0.9 mg/dL (0.5-1.5); MAGNESIUM 1.6 mg/dL (1.80-2.40); PHOSPHORUS 3.4 mg/dL (2.5-4.9); POTASSIUM 4.1 mmol/L (3.5-5.1)
[2019-09-29] MEDS: LEVOTHYROXINE 100 MCG TABLET PO SCH (05:42)
[2019-09-29] MEDS: MAGNESIUM 2GM PREMIX 50ML 50 ML IV PRN (05:52)
[2019-09-29] MEDS: INSULIN HUMULIN R 100 UNIT/ML 3ML SQ SCH ×3 (06:21→16:30)
[2019-09-29] MEDS: DIGOXIN 125 MCG TABLET PO SCH (08:22)
[2019-09-29] MEDS: PANTOPRAZOLE SODIUM 40 MG TABLET.DR PO SCH (08:22)
[2019-09-29] MEDS: HONEY 1 APPL/ML TUBE TP SCH (08:22)
[2019-09-29] MEDS: AMLODIPINE BESYLATE 5 MG TAB PO SCH (08:22)
--- NOTE | 2019-09-29 09:55 | NUR ---
LUPE Note: Douglas pending approval CM spoke to Manisha alexandra/Douglas, received updated clinicals. Pt pending approval. Will complete MOT once approved, flagged in chart. EMS arranged for today in case pt receive approval, primary nurse to call [facility] once pt ready to DC. Primary nurse aware. CM to cont to follow up.
[2019-09-29 10:13] VITALS: BP 149/70
[2019-09-29 11:51] VITALS: BP 157/52
--- NOTE | 2019-09-29 13:09 | NUR ---
CM Note: [facility] approval CM spoke to Manisha alexandra/Douglas pt has approval. MOT filled out pending and ilya super to sign. EMS arranged and faxed, primary nurse to call [facility] one pt ready to DC. Primary nurse aware. CM to cont to follow up.
[2019-09-29] MEDS: LEVOFLOXACIN 500 MG TABLET PO SCH (14:00)
--- NOTE | 2019-09-29 14:43 | NUR ---
RD FOLLOW UP Pt remains with TPN at goal rate. Clear Liquid diet in place, Ensure Clear BID. Recommend continue TPN. RD to continue to monitor weights, I/O, nutritional labs. Please notify as additional concerns arise. Thank you. Addendum: 09/29/19 at [address] Amended: Links added.
[2019-09-29] MEDS: RIVAROXABAN 10 MG TABLET PEG SCH (17:42)
[2019-09-29 18:30] VITALS: BP 156/70
--- NOTE | 2019-09-29 19:15 | NUR ---
REPORT GIVEN TO COLE CLOUD LVN .. ALSO CALLED FOR EMS TRANSPORT. CALLED TO [facility] ON DISCHARGE .
--- NOTE | 2019-09-29 19:45 | NUR ---
DISCHARGE DISCHARGE TO [facility] VIA EMS STRETCHER
== END 2019-09-29 19:45 | DRG 393 ==
LOC: EDH 14:49 → EDHIP 20:05 → OBSVTOIN 20:05 → 3AH 20:48
PROVIDERS: ADMIT Internal Medicine Critical Care Medicine; ATTEND Internal Medicine Critical Care Medicine
PROC: 02HV33Z Insertion of Infusion Device into Superior Vena Cava, Percutaneous Approach (ICD-10-PCS; principal; 2019-09-21)
DX: K63.2 Fistula of intestine (principal); E43 Unspecified severe protein-calorie malnutrition; L03.311 Cellulitis of abdominal wall; I48.20 Chronic atrial fibrillation, unspecified; N39.0 Urinary tract infection, site not specified; K57.90 Diverticulosis of intestine, part unspecified, without perforation or abscess without bleeding; B96.1 Klebsiella pneumoniae [K. pneumoniae] as the cause of diseases classified elsewhere; B96.20 Unspecified Escherichia coli [E. coli] as the cause of diseases classified elsewhere; D64.9 Anemia, unspecified; F03.90 Unspecified dementia, unspecified severity, without behavioral disturbance, psychotic disturbance, mood disturbance, and anxiety; K29.70 Gastritis, unspecified, without bleeding; E87.6 Hypokalemia; I10 Essential (primary) hypertension; K42.9 Umbilical hernia without obstruction or gangrene; R53.81 Other malaise; B95.1 Streptococcus, group B, as the cause of diseases classified elsewhere; Z53.20 Procedure and treatment not carried out because of patient's decision for unspecified reasons; Z68.22 Body mass index [BMI] 22.0-22.9, adult; Z74.01 Bed confinement status; Z79.01 Long term (current) use of anticoagulants; Z79.4 Long term (current) use of insulin; Z79.899 Other long term (current) drug therapy; Z90.710 Acquired absence of both cervix and uterus; Z93.1 Gastrostomy status
CPT/HCPCS: 36415; 49424; 71045; 74177; 80048; 80053; 80076; 80202; 81001; 82150; 82550; 82947; 82948; 83605; 83690; 83735; 84100; 84132; 84484; 85025; 85027; 85610; 85651; 85730; 86140; 87040; 87070; 87076; 87077; 87088; 87186; 93005; C1894; G0378; J1815; J2270; J2543; J3370; J3475; J3480; J3490; J7070; J7120; Q9963; Q9967